=== PATIENT | female | born 1950 | race Caucasian/White ===

== ENCOUNTER 2020-11-13 17:25 | Inpatient (IN) | payer MEDICARE ==
[2020-11-13 21:57] VITALS: BMI 23.0
[2020-11-14] MEDS ORDERED: Morphine 2 MG/ML VIAL SLOW IVP SCH ×2 (03:45→06:15)
[2020-11-14] MEDS ORDERED: hydrALAZINE 20 MG/ML VIAL SLOW IVP PRN (03:49)
[2020-11-14] MEDS ORDERED: Ondansetron ODT 4 MG TAB PO PRN (04:45)
[2020-11-14] MEDS ORDERED: Ondansetron PF 4 MG/2 ML Vial IVP PRN (04:45)
[2020-11-14] MEDS ORDERED: Acetaminophen 650 MG Suppository PR PRN (04:45)
[2020-11-14] MEDS ORDERED: HumaLOG 300 UNITS/3 ML VIAL SC PRN (05:02)
[2020-11-14] MEDS ORDERED: Dextrose 50% Abboject 50 ML SYRINGE SLOW IVP PRN (05:02)
[2020-11-14] MEDS ORDERED: Dextrose 5% in Water 1,000 ML IV PRN (05:02)
[2020-11-14] MEDS ORDERED: Piperacillin/Tazobactam 3.375 GM in Sodium Chloride 0.9% 100 ML IVPB SCH (05:30)
[2020-11-14 06:18] LABS: #Eosinphils 0.2 thou/uL (0.0-0.7); #Lymphocytes 1.4 thou/uL (1.20-3.40); #Neutrophils 9.8 thou/uL (1.40-6.50); %Basophils 0.3 % (0.0-1.0); %Eosinophils 1.3 % (0.0-10.0); %Monocytes 8.1 % (0.0-10.0); %Neutrophils 79.3 % (42.0-75.0); Hemoglobin 11.6 g/dL (12.0-16.0); Mean Corpuscular HGB CONC 31.9 g/dL (32.0-36.0); Mean Corpuscular Hemoglobin 29.8 pg (27.0-31.0); Mean Corpuscular Volume 93.4 fL (78.0-98.0); Mean Platelet Volume 6.9 fL (7.4-10.4); Platelet Count 484 thou/uL (130-400); RBC Distribution Width 13.9 % (11.5-14.5); Red Blood Cell (RBC) Count 3.91 mill/uL (4.20-5.40); White Blood Cell (WBC) Count 12.3 thou/uL (4.8-10.8)
[2020-11-14 06:37] LABS: Anion Gap 15 mmol/L (10-20); BUN (Urea Nitrogen) 5 mg/dL (9.8-20.1); Calc. Creatinine Clearance 72 mL/min (70-130); Calcium 8.4 mg/dL (7.8-10.44); Carbon Dioxide 24 mmol/L (23-31); Chloride 101 mmol/L (98-107); Glucose 218 mg/dL (83-110); Potassium 4.2 mmol/L (3.5-5.1); Sodium 136 mmol/L (136-145)
[2020-11-14] MEDS: Enoxaparin Sodium 40 MG/0.4 ML SYRINGE SC SCH (09:03)
[2020-11-14] MEDS: Micafungin 100 MG in Sodium Chloride 0.9% 100 ML IVPB SCH (09:04)
[2020-11-14] MEDS: Metoprolol Tartrate 25 MG TAB PO SCH ×2 (09:04→20:07)
[2020-11-14] MEDS: HumaLOG 300 UNITS/3 ML VIAL SC PRN ×3 (09:10→16:11)
[2020-11-14] MEDS ORDERED: Zolpidem Tartrate 5 MG TAB PO PRN (09:56)
[2020-11-14] MEDS: Acetaminophen 325 MG TAB PO PRN ×2 (10:34→16:04)
[2020-11-14] MEDS: oxyCODONE 5 MG TAB PO PRN (14:51)
[2020-11-14 15:16] LABS: SARS-CoV-2 PCR by NAA Not Detected (NotDetected)
[2020-11-14] MEDS ORDERED: Lorazepam 0.5 MG TAB PO PRN (16:04)
[2020-11-14] MEDS: OLANZapine 5 MG TAB PO SCH (20:08)
[2020-11-15] MEDS: HumaLOG 300 UNITS/3 ML VIAL SC PRN ×3 (04:41→21:16)
[2020-11-15 05:33] LABS: Anion Gap 17 mmol/L (10-20); BUN (Urea Nitrogen) 8 mg/dL (9.8-20.1); Calc. Creatinine Clearance 68 mL/min (70-130); Carbon Dioxide 20 mmol/L (23-31); Chloride 104 mmol/L (98-107); Glucose 205 mg/dL (83-110); Potassium 4.2 mmol/L (3.5-5.1); Sodium 137 mmol/L (136-145)
[2020-11-15 05:44] LABS: Hemoglobin 11.4 g/dL (12.0-16.0); Mean Corpuscular HGB CONC 32.1 g/dL (32.0-36.0); Mean Corpuscular Hemoglobin 29.3 pg (27.0-31.0); Mean Corpuscular Volume 91.4 fL (78.0-98.0); Mean Platelet Volume 7.9 fL (7.4-10.4); Platelet Count 324 thou/uL (130-400); RBC Distribution Width 13.9 % (11.5-14.5); White Blood Cell (WBC) Count 11.8 thou/uL (4.8-10.8)
[2020-11-15 05:45] LABS: Hypochromia SLIGHT = 6-15 cells (100X) (0-5/hpf); Lymphocytes 5 % (21-51); MDiff Complete? YES; Monocytes 18 % (0-10); Neutrophil 77 % (42-75); Platelet Morphology Comment Appears Decreased
[2020-11-15] MEDS ORDERED: EPINEPHrine 1 MG/ML AMP ONE (06:26)
[2020-11-15] MEDS ORDERED: Bupivacaine PF 0.5% 30 ML VIAL ONE (06:26)
[2020-11-15] MEDS: Lantus 1000 UNITS/10 ML VIAL SC SCH ×2 (09:00→21:16)
[2020-11-15] MEDS ORDERED: Fentanyl 100 MCG/2 ML VIAL ONE ×3 (09:15→13:08)
[2020-11-15] MEDS ORDERED: SUGAMMADEX SODIUM 200 MG/2 ML VIAL ONE (09:15)
[2020-11-15] MEDS ORDERED: ceFAZolin 2 GM/DEX 5% 100 ML BAG ONE (09:17)
[2020-11-15] MEDS ORDERED: PROPOFOL 20 ML ONE (09:22)
[2020-11-15] MEDS ORDERED: Lidocaine 1% PF 5 ML VIAL ONE (09:55)
[2020-11-15] MEDS ORDERED: Rocuronium Bromide 10 MG/ML (10ML VIAL) ONE (09:55)
[2020-11-15] MEDS ORDERED: PHENYLEPHRINE-NS 100 MCG/ML 10 ML SYRINGE ONE (09:55)
[2020-11-15] MEDS ORDERED: Ondansetron PF 4 MG/2 ML Vial ONE (09:55)
[2020-11-15] MEDS ORDERED: Ketamine 50 MG/ML (10ML VIAL) ONE (11:08)
[2020-11-15] MEDS: Micafungin 100 MG in Sodium Chloride 0.9% 100 ML IVPB SCH (15:24)
[2020-11-15] MEDS: Metoprolol Tartrate 25 MG TAB PO SCH ×2 (15:24→21:12)
[2020-11-15] MEDS: Enoxaparin Sodium 40 MG/0.4 ML SYRINGE SC SCH (15:25)
[2020-11-15] MEDS ORDERED: Fentanyl 100 MCG/2 ML VIAL SLOW IVP PRN (15:27)
[2020-11-15] MEDS ORDERED: Lorazepam 0.5 MG TAB PO PRN (16:44)
[2020-11-15] MEDS ORDERED: CEFAZOLIN 2 GM in Premix Bag 1 BAG IVPB SCH (17:00)
[2020-11-15] MEDS: oxyCODONE 5 MG TAB PO PRN ×2 (17:16→21:12)
[2020-11-15] MEDS: ceFAZolin Sodium/D5W 2 GM in Premix Bag 1 BAG IVPB SCH (17:17)
[2020-11-15] MEDS: Lactated Ringer's 1,000 ML IV SCH (17:17)
[2020-11-15] MEDS: Ketorolac Tromethamine 30 MG/ML VIAL IVP SCH ×2 (18:44→23:54)
[2020-11-15] MEDS: OLANZapine 5 MG TAB PO SCH (21:12)
[2020-11-16] MEDS: ceFAZolin Sodium/D5W 2 GM in Premix Bag 1 BAG IVPB SCH ×2 (00:45→09:51)
[2020-11-16] MEDS: oxyCODONE 5 MG TAB PO PRN ×2 (03:57→19:43)
[2020-11-16 04:27] LABS: #Basophils 0.1 thou/uL (0.0-0.2); #Eosinphils 0.1 thou/uL (0.0-0.7); #Lymphocytes 1.3 thou/uL (1.20-3.40); #Monocytes 1.3 thou/uL (0.11-0.59); #Neutrophils 13.3 thou/uL (1.40-6.50); %Basophils 0.3 % (0.0-1.0); %Eosinophils 0.3 % (0.0-10.0); %Lymphocytes 8.1 % (21.0-51.0); %Monocytes 8.3 % (0.0-10.0); %Neutrophils 82.9 % (42.0-75.0); Hemoglobin 9.3 g/dL (12.0-16.0); Mean Corpuscular HGB CONC 33.3 g/dL (32.0-36.0); Mean Corpuscular Volume 93.2 fL (78.0-98.0); Platelet Count 410 thou/uL (130-400); White Blood Cell (WBC) Count 16.1 thou/uL (4.8-10.8)
[2020-11-16 04:45] LABS: ALT (SGPT) Less than 7 U/L (8-55); AST (SGOT) 15 U/L (5-34); Albumin 2.2 g/dL (3.4-4.8); Alkaline Phosphatase 153 U/L (40-110); Anion Gap 12 mmol/L (10-20); BUN (Urea Nitrogen) 9 mg/dL (9.8-20.1); Bilirubin, Total 0.2 mg/dL (0.2-1.2); Calc. Creatinine Clearance 64 mL/min (70-130); Calcium 7.5 mg/dL (7.8-10.44); Carbon Dioxide 24 mmol/L (23-31); Chloride 104 mmol/L (98-107); Globulin 3.1 g/dL (2.4-3.5); Glucose 242 mg/dL (83-110); Potassium 3.9 mmol/L (3.5-5.1); Protein, Total 5.3 g/dL (5.8-8.1); Sodium 136 mmol/L (136-145)
[2020-11-16] MEDS: Lactated Ringer's 1,000 ML IV SCH (05:01)
[2020-11-16] MEDS: Ketorolac Tromethamine 30 MG/ML VIAL IVP SCH ×3 (05:55→17:48)
[2020-11-16] MEDS: HumaLOG 300 UNITS/3 ML VIAL SC PRN (05:55)
[2020-11-16] MEDS: Enoxaparin Sodium 40 MG/0.4 ML SYRINGE SC SCH (09:51)
[2020-11-16] MEDS: Lantus 1000 UNITS/10 ML VIAL SC SCH ×4 (09:51→22:17)
[2020-11-16] MEDS: Metoprolol Tartrate 25 MG TAB PO SCH ×2 (09:51→21:52)
[2020-11-16] MEDS: Micafungin 100 MG in Sodium Chloride 0.9% 100 ML IVPB SCH (09:52)
[2020-11-16] MEDS: Ampicillin/Sulbactam 3 GM in Sodium Chloride 0.9% 100 ML IVPB SCH ×2 (13:39→17:48)
[2020-11-16] MEDS: OLANZapine 5 MG TAB PO SCH (21:52)
[2020-11-17] MEDS: Ketorolac Tromethamine 30 MG/ML VIAL IVP SCH ×4 (01:13→17:11)
[2020-11-17] MEDS: Ampicillin/Sulbactam 3 GM in Sodium Chloride 0.9% 100 ML IVPB SCH ×4 (01:14→17:26)
[2020-11-17] MEDS: HumaLOG 300 UNITS/3 ML VIAL SC PRN ×3 (06:21→17:12)
[2020-11-17] MEDS: Metoprolol Tartrate 25 MG TAB PO SCH ×2 (09:30→21:18)
[2020-11-17] MEDS: Enoxaparin Sodium 40 MG/0.4 ML SYRINGE SC SCH (09:30)
[2020-11-17] MEDS: Lantus 1000 UNITS/10 ML VIAL SC SCH ×2 (09:38→21:30)
[2020-11-17] MEDS: Micafungin 100 MG in Sodium Chloride 0.9% 100 ML IVPB SCH (09:38)
[2020-11-17] MEDS ORDERED: Loperamide HCl 2 MG CAP PO PRN (17:51)
[2020-11-17] MEDS ORDERED: HYDROcodone/Acetaminophen 5/325 mg Tablet PO PRN (19:29)
[2020-11-17] MEDS: OLANZapine 5 MG TAB PO SCH (21:19)
[2020-11-18] MEDS: Metoprolol Tartrate 5 MG/5 ML VIAL IVP PRN ×2 (00:14→06:08)
[2020-11-18] MEDS: Ampicillin/Sulbactam 3 GM in Sodium Chloride 0.9% 100 ML IVPB SCH ×7 (00:24→21:00)
[2020-11-18 05:06] LABS: #Eosinphils 0.2 thou/uL (0.0-0.7); #Lymphocytes 1.4 thou/uL (1.20-3.40); #Monocytes 0.5 thou/uL (0.11-0.59); #Neutrophils 10.7 thou/uL (1.40-6.50); %Eosinophils 1.4 % (0.0-10.0); %Lymphocytes 10.9 % (21.0-51.0); %Monocytes 4.1 % (0.0-10.0); %Neutrophils 83.6 % (42.0-75.0); Hemoglobin 9.2 g/dL (12.0-16.0); Mean Corpuscular Volume 93.8 fL (78.0-98.0); Platelet Count 410 thou/uL (130-400); RBC Distribution Width 13.8 % (11.5-14.5); Red Blood Cell (RBC) Count 2.98 mill/uL (4.20-5.40); White Blood Cell (WBC) Count 12.9 thou/uL (4.8-10.8)
[2020-11-18 05:28] LABS: Anion Gap 12 mmol/L (10-20); BUN (Urea Nitrogen) 9 mg/dL (9.8-20.1); Calc. Creatinine Clearance 72 mL/min (70-130); Carbon Dioxide 25 mmol/L (23-31); Chloride 106 mmol/L (98-107); Glucose 185 mg/dL (83-110); Potassium 3.7 mmol/L (3.5-5.1); Sodium 139 mmol/L (136-145)
[2020-11-18] MEDS: Fentanyl 100 MCG/2 ML VIAL SLOW IVP PRN ×4 (06:08→17:13)
[2020-11-18] MEDS: HumaLOG 300 UNITS/3 ML VIAL SC PRN ×2 (06:11→17:12)
[2020-11-18] MEDS: Enoxaparin Sodium 40 MG/0.4 ML SYRINGE SC SCH (08:35)
[2020-11-18] MEDS ORDERED: Loperamide HCl 2 MG CAP PO PRN (08:36)
[2020-11-18] MEDS: Micafungin 100 MG in Sodium Chloride 0.9% 100 ML IVPB SCH (08:43)
[2020-11-18] MEDS ORDERED: Lantus 1000 UNITS/10 ML VIAL SC SCH (09:00)
[2020-11-18] MEDS ORDERED: Diltiazem 125 MG in Sodium Chloride 0.9% 100 ML IVPB SCH (10:00)
[2020-11-18] MEDS ORDERED: Adenosine 6 MG/2 ML VIAL ONE ×2 (10:38→10:45)
[2020-11-18] MEDS ORDERED: Metoprolol Tartrate 5 MG/5 ML VIAL ONE (10:59)
[2020-11-18] MEDS ORDERED: Sodium Chloride 0.9% 100 ML ONE ×2 (11:08)
[2020-11-18] MEDS: Vancomycin HCl 25 MG/ML Oral PO SCH ×2 (11:25→17:11)
[2020-11-18] MEDS: Metoprolol Tartrate 25 MG TAB PO SCH ×2 (13:45→20:26)
[2020-11-18 17:46] VITALS: BP 160/72; TEMP 99.3
[2020-11-18] MEDS: OLANZapine 5 MG TAB PO SCH (20:26)
[2020-11-18] MEDS: Lantus 1000 UNITS/10 ML VIAL SC SCH (22:03)
== END 2020-11-18 21:20 | disposition short-term general hospital (02) | DRG 163 ==
LOC: 2NO 17:25 → OBSVTOIN 11-14 04:54
PROVIDERS: ADMIT Internal Medicine; ATTEND Internal Medicine
PROC: 0BNK0ZZ Release Right Lung, Open Approach (ICD-10-PCS; principal; 2020-11-15)
PROC: 0DJ08ZZ Inspection of Upper Intestinal Tract, Via Natural or Artificial Opening Endoscopic (ICD-10-PCS; 2020-11-15)
DX: J86.0 Pyothorax with fistula (principal); B37.1 Pulmonary candidiasis; Z20.822 Contact with and (suspected) exposure to COVID-19; E78.5 Hyperlipidemia, unspecified; E11.22 Type 2 diabetes mellitus with diabetic chronic kidney disease; I12.9 Hypertensive chronic kidney disease with stage 1 through stage 4 chronic kidney disease, or unspecified chronic kidney disease; N18.30 Chronic kidney disease, stage 3 unspecified; I25.10 Atherosclerotic heart disease of native coronary artery without angina pectoris; F17.210 Nicotine dependence, cigarettes, uncomplicated; R13.10 Dysphagia, unspecified; R63.4 Abnormal weight loss; E11.65 Type 2 diabetes mellitus with hyperglycemia; I48.91 Unspecified atrial fibrillation; J44.9 Chronic obstructive pulmonary disease, unspecified; K21.00 Gastro-esophageal reflux disease with esophagitis, without bleeding; Z79.01 Long term (current) use of anticoagulants; Z95.5 Presence of coronary angioplasty implant and graft; I69.991 Dysphagia following unspecified cerebrovascular disease; Z88.2 Allergy status to sulfonamides; Z91.011 Allergy to milk products; I25.2 Old myocardial infarction; Z79.82 Long term (current) use of aspirin; Z79.899 Other long term (current) drug therapy; Z90.710 Acquired absence of both cervix and uterus; Z68.23 Body mass index [BMI] 23.0-23.9, adult
CPT/HCPCS: 36415; 36416; 71045; 71260; 80048; 80053; 85025; 86850; 86900; 86901; 87070; 87205; 87324; 87449; 87493; 93005; 93010; J0153; J0171; J0282; J0295; J0360; J1650; J1815; J1885; J2248; J2270; J2405; J2704; J3010; J3490; J7120; S0020; U0003; U0005